=== PATIENT | male | born 1950 | race Caucasian/White ===

== ENCOUNTER 2022-01-12 18:55 | Emergency (ER) | payer MEDICARE, OTHER ==
[~2022-01-12] VITALS: Ht 162.6 cm; Wt 104.0 kg
[2022-01-12 19:41] LABS: Basophils # (auto) 0.1 10 ^3/uL (0-0.2); Eosinophils # (auto) 0.4 10 ^3/uL (0-0.8); Eosinophils % (auto) 5.3 % (0.0-7.0); Hematocrit 41.9 % (41.0-53.0); Hemoglobin 13.7 g/dL (13.5-17.5); Lymphocytes # (auto) 2.7 10 ^3/uL (0.4-5.4); Lymphocytes % (auto) 33.1 % (10.0-50.0); Mean Corpuscular Hemoglobin 29.3 pg (28.0-32.0); Mean Corpuscular Hgb Conc. 32.7 g/dL (32.0-36.0); Mean Corpuscular Volume 89.4 fL (80.0-100.0); Monocytes % (auto) 11.9 % (0.0-12.0); Neutrophils # (auto) 3.9 10 ^3/uL (1.6-8.6); Neutrophils % (auto) 48.7 % (37.0-80.0); Nucleated Red Blood Cells % 0.1 %; Red Blood Cells 4.69 10^6/uL (4.5-5.90)
[2022-01-12 21:04] LABS: Albumin 3.4 g/dL (3.4-5.0); Calcium 8.6 mg/dL (8.5-10.1); Potassium 4.4 mmol/L (3.5-5.1)
[2022-01-12 21:07] LABS: BUN/Creatinine Ratio 31.4; Bilirubin, Total 0.3 mg/dL (0.2-1.0); Total Protein 6.6 g/dL (6.4-8.2)
[2022-01-12 22:22] VITALS: BP 115/70
== END 2022-01-12 22:24 | disposition home or self-care (01) ==
LOC: ER 18:58
DX: R07.89 Other chest pain (principal); R47.1 Dysarthria and anarthria; I10 Essential (primary) hypertension; E78.5 Hyperlipidemia, unspecified
CPT/HCPCS: 36415; 70450; 71045; 80053; 83880; 84484; 85025; 93005

== ENCOUNTER → 2023-11-17 | Outpatient (CLI) | payer MEDICARE, OTHER ==
[~2023-11-17] MED LIST: BUPIVACAINE HCL 0.25% P/F 10 ML VIAL ONE; IOHEXOL 300 MG/ML 100ML BOTTLE IJ ONE; LIDOCAINE 2% (LOCAL ANESTH.) PF 5ml SDV ONE; LIDOCAINE 2%HCL (LOCAL ANESTH.) INJ 10ml MDV ONE; methylPREDNISolone ACETATE 80 MG/ML VL ONE
== END | disposition home or self-care (01) ==
LOC: XYW 13:10
PROVIDERS: ATTEND Orthopaedic Surgery Adult Reconstructive Orthopaedic Surgery
DX: M25.512 Pain in left shoulder (principal)
CPT/HCPCS: 20610; 77002; J1010; J2001; J3490; Q9967; 73020